=== PATIENT | female | born 1990 ===

== ENCOUNTER 2018-09-05 17:53 | Emergency (ER) | payer SELFPAY ==
[2018-09-05 18:04] VITALS: O2SAT 99
[2018-09-05] MEDS ORDERED: Sodium Chloride 0.9% 1,000 ML IV STA (18:34)
--- NOTE | 2018-09-05 18:37 | ED PDOC ---
HPI: Female Pain Time Seen by Provider: 09/05/18 18:20 Chief Complaint (Nursing): Female Genitourinary Chief Complaint (Provider): Pelvic Pain, Vaginal Bleeding History Per: Patient History/Exam Limitations: no limitations Onset/Duration Of Symptoms: Hrs (since this morning) Current Symptoms Are (Timing): Still Present Additional Complaint(s): 28 year old female presents to the ED for evaluation of pelvic pain and some vaginal bleeding since this morning. She states the pain is cramping, and the area "feels inflamed," but notes it does not feel like her normal menstrual cycle. Otherwise, denies chest pain, shortness of breath, nausea, vomiting, diarrhea, and urinary symptoms. PMD: not in area Past Medical History Reviewed: Historical Data, Nursing Documentation, Vital Signs Vital Signs: Last Vital Signs Temp 98.3 F 09/05/18 18:01 Pulse 84 09/05/18 18:01 Resp 16 09/05/18 18:01 BP 114/70 09/05/18 18:01 Pulse Ox 99 09/05/18 18:01 - Medical History PMH: No Chronic Diseases - Surgical History Surgical History: No Surg Hx - Family History Family History: States: Unknown Family Hx - Social History Current smoker - smoking cessation education provided: No Alcohol: None Drugs: Denies - Home Medications Home Medications: Ambulatory Orders Medication Instructions Recorded Ibuprofen [Motrin] 600 mg PO TID 7 Days tab 09/05/18 - Allergies Allergies/Adverse Reactions: Allergies Allergy/AdvReac Type Severity Reaction Status Date / Time No Known Allergies Allergy Verified 09/05/18 18:01 Review of Systems ROS Statement: Except As Marked, All Systems Reviewed And Found Negative Cardiovascular: Negative for: Chest Pain Respiratory: Negative for: Shortness of Breath Gastrointestinal: Negative for: Nausea, Vomiting, Abdominal Pain, Diarrhea Genitourinary Female: Positive for: Vaginal Bleeding, Pelvic Pain (cramping). Negative for: Dysuria, Frequency, Incontinence, Hematuria Physical Exam - Reviewed Nursing Documentation Reviewed: Yes Vital Signs Reviewed: Yes - Physical Exam Appears: Positive for: No Acute Distress Head Exam: Positive for: ATRAUMATIC, NORMOCEPHALIC Skin: Positive for: Normal Color, Warm, Dry Eye Exam: Positive for: Normal appearance Neck: Positive for: Normal, Painless ROM Cardiovascular/Chest: Positive for: Regular Rate, Rhythm Respiratory: Positive for: Normal Breath Sounds. Negative for: Respiratory Distress Gastrointestinal/Abdominal: Positive for: Soft, Tenderness (mild tenderness to suprapubic area; no other upper or lower quadrant tenderness). Negative for: Guarding, Rebound Back: Positive for: Normal Inspection. Negative for: L CVA Tenderness, R CVA Tenderness, Vertebral Tenderness Extremity: Positive for: Normal ROM (all extremities) Neurological/Psych: Positive for: Awake, Alert, Oriented (x3). Negative for: Motor/Sensory Deficits - ECG O2 Sat by Pulse Oximetry: 99 (RA) Pulse Ox Interpretation: Normal - CT Scan/US US Other Rad Studies (CT/US): Read By Radiologist Other Rad Interpretation: no acute - Progress ED Course And Treament: 2024: Stable. AAOx3. Pain free. Tolerated PO. Fu with pcp/obgyn. Medical Decision Making Medical Decision Making: Time: 1833 Initial Impression: suprapubic pain, vaginal bleeding, r/o Initial Plan: --BMP --U-dip --U-preg --CBC with differential --Normal saline IV --Toradol 15mg IVP --US transvag Scribe Attestation: Documented by Maricruz Parry, acting as a scribe for Magnus Hooper MD. Provider Scribe Attestation: All medical record entries made by the Scribe were at my direction and personally dictated by me. I have reviewed the chart and agree that the record accurately reflects my personal performance of the history, physical exam, medical decision making, and the department course for this patient. I have also personally directed, reviewed, and agree with the discharge instructions and disposition. Disposition - Clinical Impression Clinical Impression: Pelvic pain - Patient ED Disposition Is Patient to be Admitted: No Counseled Patient/Family Regarding: Studies Performed, Diagnosis, Need For Followup, Rx Given - Disposition Referrals: [facility] [Outside] - 04/[facility] - 09/06/18 Disposition: Routine/Home Disposition Time: 20:27 Condition: STABLE Additional Instructions: Return if not better in 3 days. Prescriptions: Ibuprofen [Motrin] 600 mg PO TID 7 Days tab Instructions: Acute Pelvic Pain Print Language: TAMAZIGHT
[2018-09-05 20:29] LABS: BASO % 0.6 % (0.0-2.0); EOS % 0.4 % (0.0-4.0); HEMOGLOBIN 13.2 g/dL (12.0-16.0); LYMPH # 1.7 K/uL (1.0-4.3); LYMPH % 37.4 % (20.0-40.0); MEAN CELL VOLUME 92.3 fl (81.0-99.0); MEAN CORPUSCULAR HEMOGLOBIN 30.8 pg (27.0-31.0); MEAN CORPUSCULAR HGB CONC 33.4 g/dL (33.0-37.0); MEAN PLATELET VOLUME 10.7 fl (7.2-11.7); MONO # 0.4 K/uL (0.0-0.8); MONO % 8.4 % (0.0-10.0); NEUT # 2.5 K/uL (1.8-7.0); NEUT % 53.2 % (50.0-75.0); NRBC % 0.2 % (0.0-0.0); RBC 4.27 Mil/uL (3.80-5.20); RED CELL DISTRIBUTION WIDTH 14.4 % (11.5-14.5); WHITE BLOOD COUNT 4.7 K/uL (4.8-10.8)
[2018-09-05 20:39] LABS: BLOOD UREA NITROGEN 15 mg/dl (7-17); CALCIUM 9.4 mg/dL (8.4-10.2); GFR NON-AFRICAN AMERICAN > 60
[2018-09-05 21:06] VITALS: BP 116/61; PULSE 88; RESP 18; TEMP 98.5
--- NOTE | 2018-09-06 09:22 | US ---
Date of service: 09/05/2018 HISTORY: vaginal bleeding COMPARISON: None available. TECHNIQUE: Transvaginal pelvic ultrasound was performed. FINDINGS: UTERUS: Measures 6.4 x 5.0 x 4.4 cm. Retroverted, normal in size and appearance. No fibroid or other mass lesion seen. ENDOMETRIUM: Measures 6.0 mm in diameter. Normal in appearance. CERVIX: There is a nabothian cyst in the cervix. RIGHT OVARY: Measures 3.9 x 3.2 x 2.4 cm. No solid mass. Normal flow. LEFT OVARY: Measures 2.7 x 2.2 x 2.0 cm. No solid mass. Normal flow. FREE FLUID: No significant free fluid noted. OTHER FINDINGS: None. IMPRESSION: Unremarkable pelvic ultrasound. A preliminary report was provided by [employer].
== END 2018-09-05 21:00 | disposition home or self-care (01) ==
LOC: H.ER 17:53
DX: R10.2 Pelvic and perineal pain (principal)
CPT/HCPCS: 76830; 80048; 81025; 85025; 96361; 96374; 99284; J1885; J7030